=== PATIENT | male | born 1950 | race Caucasian/White ===

== ENCOUNTER 2016-06-26 16:57 | Emergency (ER) | payer MEDICARE, OTHER ==
[~2016-06-26] VITALS: Ht 167.6 cm; Wt 99.8 kg
[~2016-06-26 16:57] MED LIST: ASPIRIN325 MG PO; CARDIZEM CD180 MG PO; LANTUS100 UNIT/1 SUBCUT; LIPITOR80 MG PO; TAMBOCOR50 MG PO
== END 2016-06-26 18:05 | disposition short-term general hospital (02) ==
LOC: ER 16:57
DX: S06.0X9A Concussion with loss of consciousness of unspecified duration, initial encounter (principal); S16.1XXA Strain of muscle, fascia and tendon at neck level, initial encounter; W22.8XXA Striking against or struck by other objects, initial encounter